=== PATIENT | male | born 1955 | race Caucasian/White ===

== ENCOUNTER 2019-02-09 19:32 | Emergency (ER) | payer OTHER ==
[~2019-02-09] VITALS: Ht 167.6 cm; Wt 59.5 kg
[2019-02-09 19:35] VITALS: BP 126/90; PULSE 92; RESP 18; Ht 167.6 cm; Wt 59.5 kg
[2019-02-09] MEDS ORDERED: IBUPROFEN 600 MG TAB PO ONE (20:10)
[2019-02-09] MEDS ORDERED: SOD CHLORIDE 0.9% 500 ML IV STA (20:41)
--- NOTE | 2019-02-09 20:51 | ERD ---
ER Documentation Chief Complaint Chief Complaint RA [id number],gen weak & FTT since yesterday morning,hx muscle dystrophy,body pain HPI This is a 63-year-old male brought in by rescue generalized weakness and failure to thrive since yesterday morning. Patient has a history of muscular dystrophy and body pain. Patient was waiting 35 minutes for evaluation, given that it was a busy shift and the I decided to sign out AGAINST MEDICAL ADVICE. Upon signing out AGAINST MEDICAL ADVICE patient is alert and oriented x4 with goal oriented speech and good decision-making capacity. Patient understands risks of signing out AMA including due to possible condition, and related these weeks back in his own words. ROS All systems reviewed and are negative except as per history of present illness. Allergies Allergies: Coded Allergies: No Known Allergy (Unverified , 02/09/19) PMhx/Soc Medical and Surgical Hx: pt denies Surgical Hx History of Surgery: No Anesthesia Reaction: No Hx Neurological Disorder: No Hx Respiratory Disorders: No Hx Cardiac Disorders: No Hx Psychiatric Problems: No Hx Miscellaneous Medical Probl: Yes (MUSCULAR DYSTROPHY) Hx Alcohol Use: Yes (2 BEERS EVERY DAY) Hx Tobacco Use: Yes (CIGARETTES) Smoking Status: Current every day smoker Physical Exam Vitals Vital Signs Date Temp Pulse Resp B/P (MAP) Pulse Ox O2 O2 Flow FiO2 Time Delivery Rate 02/09/19 97.9 92 18 126/90 99 19:35 (102) Physical Exam Const: No acute distress Head: Atraumatic Eyes: Normal Conjunctiva ENT: Normal External Ears, Nose and Mouth. Neck: Full range of motion. No meningismus. Resp: Clear to auscultation bilaterally Cardio: Regular rate and rhythm, no murmurs Abd: Soft, non tender, non distended. Normal bowel sounds Skin: No petechiae or rashes Back: No midline or flank tenderness Ext: No cyanosis, or edema Neur: Awake and alert Psych: Normal Mood and Affect Results 24 hrs Current Medications Medications Dose Sig/Jacquelyn Start Time Status Last (Trade) Ordered Route PRN Stop Time Admin Dose Reason Admin Ibuprofen 600 mg ONCE ONCE 02/09/19 DC 02/09/19 (Motrin) PO 20:10 20:15 02/09/19 20:12 Sodium 500 ml @ Q1H STAT 02/09/19 Chloride 500 mls/hr IV 20:41 02/09/19 21:40 Procedures/MDM This is a 63-year-old male brought in by rescue generalized weakness and failure to thrive since yesterday morning. Patient has a history of muscular dystrophy and body pain. Patient was waiting 35 minutes for evaluation, given that it was a busy shift and the I decided to sign out AGAINST MEDICAL ADVICE. Upon signing out AGAINST MEDICAL ADVICE patient is alert and oriented x4 with goal oriented speech and good decision-making capacity. Patient understands risks of signing out AMA including due to possible condition, and related these weeks back in his own words. Departure Diagnosis: Primary Impression: Acute weakness Condition: Fair VASILE MCBRIDE Feb 09, 2019 20:51
== END 2019-02-09 20:25 | disposition left against medical advice (07) ==
LOC: E/R 19:32
DX: R53.1 Weakness (principal); F17.210 Nicotine dependence, cigarettes, uncomplicated
CPT/HCPCS: J7040; Z7502; Z7610; 99283